=== PATIENT | female | born 1995 ===

== ENCOUNTER 2022-04-13 13:52 | Emergency (ER) | payer OTHER, SELFPAY ==
[2022-04-13 14:01] VITALS: BP 143/94; PULSE 104; RESP 16; TEMP 37.1; O2SAT 99
--- NOTE | 2022-04-13 14:08 | ED.URI ---
HPI - URI/Sore Throat General Chief Complaint: Upper Respiratory Infection Stated Complaint: sore throat, productive cough Time Seen by Provider: 04/13/22 14:08 Source: patient Mode of arrival: ambulatory Limitations: no limitations History of Present Illness HPI Narrative: 26-year-old female presents with complaint of nasal congestion, sinus pressure, fatigue, low-grade fever, cough for 4 days. Afebrile today. Exposed to COVID on Thanksgiving. Denies chest pain and shortness of breath. Denies nausea vomiting diarrhea. Taking [id number] medications to treat her symptoms. Needs work note. All systems reviewed and negative except as noted above. Related Data Home Medications Medication Instructions Recorded Confirmed alprazolam 0.25 mg tablet 0.25 mg DAILY PRN Anxiety 04/13/22 04/13/22 citalopram 10 mg tablet 10 mg DAILY 04/13/22 04/13/22 labetalol 100 mg tablet 100 mg BID 04/13/22 04/13/22 Allergies Allergy/AdvReac Type Severity Reaction Status Date / Time No Known Allergies Allergy Unverified 04/13/22 14:09 Review of Systems Review of Systems: CONSTITUTIONAL: Reports fever, chills, or sweats. EYES: Denies visual changes, redness, or discharge. ENT: reports rhinorrhea, congestion, sore throa. Deniesotalgia. CARDIOVASCULAR: Denies chest pain, palpitations, or edema. RESPIRATORY: report cough. Denies dyspnea. GASTROINTESTINAL: Denies abdominal pain, nausea, vomiting, or diarrhea. GENITOURINARY: Denies dysuria or hematuria. SKIN: Denies rash or itching. MUSCULOSKELETAL: Denies back pain, joint pain, or myalgia. NEUROLOGIC: Denies headache, numbness, or weakness. PSYCHIATRIC: Denies anxiety or depression. All other systems reviewed are negative, except as documented in HPI. PMFSH Comments At time of signature, agree with nursing past medical, surgical, social and family history. There is no relevant family history pertinent to the presenting complaint. Exam Narrative: GENERAL: This is a well-nourished, well-developed patient, in no apparent distress. HEAD: normocephalic, atraumatic. EYES: PERRL. Sclera clear/white. Vision is grossly intact. EARS: External ears normal, auditory canals clear and without drainage, TMs normal without perforation. Hearing grossly intact. NOSE: External nose normal with clear nasal drainage, mild congestion. THROAT: Mucous membranes moist, posterior pharynx clear. NECK: Neck supple, non-tender without lymphadenopathy, masses or thyromegaly. CARDIOVASCULAR: Regular rate and rhythm without murmurs, gallops, or rubs. RESPIRATORY: Clear to auscultation. Breath sounds equal bilaterally. No wheezes, rales, or rhonchi. SKIN: warm, Dry, intact with no suspicious lesions or rash, good texture and turgor. NEURO: awake, alert, and oriented to person, place and time. There were no obvious focal neurologic abnormalities. EXTREMITIES: No joint tenderness, effusion, or edema noted. Course Course Level of Care: Express Care Visit Vital Signs Vital signs: Vital Signs Temperature 37.1 C 04/13/22 14:01 Pulse Rate 104 H 04/13/22 14:01 Respiratory Rate 16 04/13/22 14:01 Blood Pressure 143/94 H 04/13/22 14:01 Pulse Oximetry 99 04/13/22 14:01 Oxygen Delivery Room Air 04/13/22 14:01 Temperature 37.1 C 04/13/22 14:01 Pulse Rate 104 H 04/13/22 14:01 Respiratory Rate 16 04/13/22 14:01 Blood Pressure 143/94 H 04/13/22 14:01 Pulse Oximetry 99 04/13/22 14:01 Oxygen Delivery Room Air 04/13/22 14:01 Reviewed MDM - URI/Sore Throat MDM Narrative Medical decision making narrative: Patient is aware of diagnosis, understands and agrees to treatment plan. Anticipatory guidance given. Patient agrees to follow-up as directed and is aware of reasons to seek care at the emergency department. Portions of this record may have been created with voice recognition software Differential Diagnosis Differential diagnosis: Likely upper respiratory infectio
== END 2022-04-13 14:31 | disposition home or self-care (01) ==
PROVIDERS: Emergency Provider Nurse Practitioner Family
DX: J06.9 Acute upper respiratory infection, unspecified (principal)
CPT/HCPCS: 99213; G0463